=== PATIENT | male | born 1945 | race African-American/Black ===

== ENCOUNTER 2017-06-12 16:37 | Emergency (ER) | payer OTHER ==
[~2017-06-12] VITALS: Ht 182.9 cm; Wt 114.8 kg
--- NOTE | ~2017-06-12 | EKG ---
[address] [address] ELECTROCARDIOGRAM REPORT Name: TIMVÍCTOR JR [id number] Admission: 06/12/17 Attend Phys: Discharge: 06/12/17 Date of : 47 Report #: [id number] THIS REPORT FOR: //name// [facility] ED Test Date: 2017-06-13 Test Time: 18:04:22 Pat Name: VÍCTOR DUMONT Department: Room: Gender: M [employer] Person: IRVING : 1945 Requested By: Melissa Burger Order Number: [id number] MD: Measurements Intervals [place] Rate: 74 P: -4 NV: 200 QRS: -71 QRSD: 146 T: 110 QT: 448 QTc: 497 Interpretive Statements Sinus rhythm Ventricular premature complex IVCD, consider atypical RBBB Anterolateral infarct, age indeterminate Abnormal T, consider ischemia, lateral leads Compared to ECG 10/19/2016 12:46:41 Ventricular premature complex(es) now present Myocardial infarct finding now present T-wave abnormality now present Possible ischemia now present Left anterior fascicular block no longer present [email or web address] By: 03 03 Epiphany Epiphany, /ENA
[~2017-06-12 16:37] MED LIST: ASPIR-TRIN325 MG PO; ATORVASTATIN CA80 MG PO; BUMETANIDE 1 MG1 M1 GT; BUMETANIDE 1 MG1 M1 PO; COREG3.125 MG; DOXYCYCLINE 10100 MG PO; FLONASE 0.05%50 MCG NASAL; HYDROCHLOROTH12.5 M1 PO; IMBRUVICA140 MG PO; KEFLEX500 MG PO; LASIX 20 MG TAB20 MG PO; LIPITOR80 MG PO; LISINOPRIL40 MG PO; PREDNISONE 10 M10 MG PO; PREDNISONE 20 M20 MG PO; TESSALON PERLE100 MG PO; VENTOLIN HFA 1818 GM INH; [UNRECOGNIZED DRUG - CODE] PO
[2017-06-12 17:25] LABS: HEMOGLOBIN 12.5 gm/dL (14.0-18.0); MCHC 32.6 g/dL (28.0-37.0); MCV 98.1 fL (80.0-100.0)
[2017-06-12 17:28] LABS: HEMATOCRIT 38.3 % (42.0-52.0); PLATELET COUNT 82 thou/uL (150-400); RDW 15.8 % (10.5-14.5)
[2017-06-12 17:29] LABS: MANUAL DIFF YES
[2017-06-12 17:32] LABS: WBC 74.5 thou/uL (4.0-11.0)
[2017-06-12 17:36] LABS: CALCIUM 8.9 mg/dL (8.5-10.1); CREATININE 2.3 mg/dL (0.7-1.3)
[2017-06-12 17:39] LABS: INR 2.1; PROTIME 20.6 Seconds (9.3-11.4)
[2017-06-12 17:39] LABS: ABG SAMPLE TYPE ARTERIAL; HCO3 27.2 mmol/L (22.0-26.0); LACTATE 0.91 mmol/L (0.5-2.0); O2(CT) 16.2 mL/dL (15.0-23.0); O2Hb 91.4 % (92.0-98.0); PCO2 44.9 mmHg (35.0-45.0); PO2 67.8 mmHg (80.0-100.0); sO2 93.5 % (92.0-98.0); tCO2 28.6 mmol/L (24.0-30.0)
[2017-06-12 17:45] LABS: ALBUMIN 3.7 g/dL (3.4-5.0); TOTAL BILIRUBIN 1.3 mg/dL (<0.1-1.0); TOTAL PROTEIN 6.1 g/dL (6.4-8.2); TROPONIN-I 0.05 ng/mL (<0.04-0.07)
[2017-06-12 17:48] LABS: STICK SITE L.RADIAL
[2017-06-12 18:19] LABS: ABSOLUTE NEUTROPHILS 5.2 thou/uL (1.4-8.2); POLYCHROMASIA 1+; TOTAL CELL COUNT 100
[2017-06-12] MEDS ORDERED: LEVAQUIN 500 M500 M2 PO (19:32)
[2017-06-12] MEDS ORDERED: PREDNISONE 20 M20 MG PO (19:33)
[2017-06-12] MEDS ORDERED: VENTOLIN HFA 1818 GM INH (19:33)
== END 2017-06-12 20:07 | disposition left against medical advice (07) ==
LOC: ER 16:37
PROVIDERS: Nurse Practitioner Family
DX: J18.8 Other pneumonia, unspecified organism (principal); R09.02 Hypoxemia; D89.9 Disorder involving the immune mechanism, unspecified; I25.2 Old myocardial infarction; I10 Essential (primary) hypertension; Z87.01 Personal history of pneumonia (recurrent)

== ENCOUNTER 2017-06-13 17:12 | Inpatient (IN) | payer OTHER ==
[~2017-06-13] VITALS: Ht 152.4 cm; Wt 114.8 kg
--- NOTE | ~2017-06-13 | HC ---
[place] [address] CONSULTATION Name: VÍCTOR DUMONT Room #: 432-P ADM IN M.R.#: [id number] Admission: 06/13/17 Attend Phys: Ramon Andre MD Discharge: Date of : 47 Report #: [id number] THIS REPORT FOR: //name// CC: [facility] physician/PCP Ramon Turner Quick DATE OF SERVICE: 06/13/2017 REASON FOR CONSULTATION: Pneumonia. IMPRESSION: 1. Pneumonia and immunocompromised host. Etiology is especially since he was in the hospital, I believe less than a month ago. Chest x-ray today is improved, will not change antibiotics at present. 2. Leukemia. 3. History of myocardial infarction. 4. History of LV thrombus. 5. Chronic kidney disease. 6. Hyperkalemia. 7. Elevated BNP. 8. Anticoagulated. 9. Leukocytosis. 10. Anemia, macrocytic. 11. Thrombocytopenia, chronic. 12. Hypoxemia. PLAN: IV antibiotics, IV corticosteroids, aerosol therapy, hematology and ID to see. We will get echo tomorrow to evaluate the LV thrombus. HISTORY OF PRESENT ILLNESS: A 71-year-old male relates he started feeling ill about a week and a half ago when they were locked up in a meeting with someone who had cold. Since that time he has progressed to some worse was in Emergency Room yesterday, did not wish to stay as had something important to do, came back again and ready to be admitted. Positive cough, yellowish sputum. Positive fever, shortness of breath. No definite chest pain. PAST MEDICAL HISTORY: ALLERGIES: No known. PAST SURGICAL HISTORY: None. FAMILY HISTORY: [place], anemia, and emphysema. SOCIAL HISTORY: Negative tobacco, ETOH. No drugs of abuse. [address] [place] [address] CONSULTATION Name: VÍCTOR DUMONT Room #: 432-P [facility] IN [facility]#: [id number] Admission: 06/13/17 Attend Phys: Ramon Andre MD Discharge: Date of : 47 Report #: [id number] REVIEW OF SYSTEMS: As above. PHYSICAL EXAMINATION: VITAL SIGNS: Temperature 36.4, pulse 74, respirations 17, and blood pressure 117/61. EYES: Negative icterus. NECK: Trachea midline. No thrush. LUNGS: Coarse with wheeze. HEART: Regular. ABDOMEN: Bowel sounds present. EXTREMITIES: Showed trace edema. He feels the edema is secondary to corticosteroids. He has been on this in the past. LABORATORY DATA: Chest x-ray showed infiltrate. BNP elevated 5572. BUN 42, creatinine 2.2 and potassium 5.3. Total protein 6.3. INR 2.4, white count 126. Hemoglobin 12, platelets 97. Chest x-ray showed improvement. Troponin today, less than 0.04. Blood cultures from yesterday so far no growth. By: 09 27 Edson Blair MD /pino
--- NOTE | ~2017-06-13 | S ---
[facility] [place] [address] SURGICAL PATH RPT PROCEDURE Name: VÍCTOR DUMONT Room #: 432-P [facility] IN M.R.#: [id number] Admission: 06/13/17 Date of : 47 Discharge: 06/15/17 Report #: [id number] Path Case #: [id number] PATHOLOGY REPORT COLLECTION DATE: 06/13/2017 RECEIVED DATE: 06/15/2017 SUBMITTING PHYS: Dr. Ramon Andre OTHER PHYS: Melissa Tubbs SPECIMEN(S) RECEIVED: A.Peripheral smear * * * * * * * * * * * * FINAL DIAGNOSIS: Peripheral blood smear: - Marked leukocytosis / absolute mature lymphocytosis, mild macrocytic anemia and mild to moderate thrombocytopenia (see comment). (CLW:eric; 06/15/2017) COMMENT: Overall, the peripheral blood has a marked leukocytosis / absolute mature lymphocytosis, mild macrocytic anemia and mild to moderate thrombocytopenia. The etiology of the findings is unclear based entirely on slide review. It is consistent with the patient's reported history of chronic lymphocytic leukemia / small lymphocytic lymphoma (diagnosed elsewhere). Other causes of macrocytic anemia include vitamin B12 and/or folate deficiency, drug, liver and/or thyroid disease, and primary bone marrow disorders. Other causes of thrombocytopenia include immune and non-immune platelet destruction, drug and/or toxic exposures, blood loss, dilutional and primary bone marrow disorders. Correlation with clinical history and additional laboratory data is recommended. (CLW:eric; 06/15/2017) PATHOLOGIST: Lashonda Cheek M.D. REPORT ELECTRONICALLY SIGNED BY: Lashonda Cheek M.D. DATE/TIME: 06/15/2017 15:53 * * * * * * * * * * * * MICROSCOPIC DESCRIPTION: CBC Data (06/13/17): WBC 126,200 /uL, RBC 3.85, hemoglobin 12.0 g/dL, hematocrit 38.6%, MCV 100.2 fL, MCH 31.1 pg, MCHC 31.1 g/dL, RDW 15.9%. Platelet count 97,000 /uL. Manual white blood cell differential: segs 4%, lymphs 91%, and monos 5%. Peripheral Blood Smear: [address] [address] SURGICAL PATH RPT PROCEDURE Name: VÍCTOR DUMONT Room #: 432-P [facility] IN [facility]#: [id number] Admission: 06/13/17 Date of : 47 Discharge: 06/15/17 Report #: [id number] Path Case #: [id number] Cytomorphological examination of the Isidro's stained peripheral blood smear confirms the provided data. Red blood cells show mild macrocytic anemia with mild anisocytosis. No significant poikilocytosis is identified. No schistocytes or microspherocytes are seen. White blood cells are markedly increased in number. They are predominantly lymphocytes that are small, round, and mature appearing with condensed chromatin and scant cytoplasm. Smudge cells are seen. No significant large lymphoid (prolymphocyte) component is identified. Rare neutrophils are without significant dyspoiesis or significant left shift. Rare monocytes are mature. Platelets are mild to moderately decreased in number and mainly normal in morphology with rare larger platelets noted. (CLW:eric; 06/15/2017) CLINICAL HISTORY: 71-year-old man with leukocytosis / absolute mature lymphocytosis. Morphologic review of the peripheral blood smear is requested by the patient's physician. INITIAL CPT CODE(S): A; [place] Professional services performed by [email or web address] at [facility] [address], [place] [address] Technical services performed by [email or web address] at [address] [place] [address], [address], [place] [address]. [facility] [address] [place] [address] PHONE: [phone] DIRECTOR: Davian Antony M.D. * * * END OF REPORT * * *
--- NOTE | ~2017-06-13 | HC ---
[facility] [place] [address] CONSULTATION Name: VÍCTOR DUMONT Room #: 432-P ADM IN M.R.#: [id number] Admission: 06/13/17 Attend Phys: Ramon Andre MD Discharge: Date of : 47 Report #: [id number] THIS REPORT FOR: //name// CC: [facility] physician/PCP Ramon Turner Quick REASON FOR CONSULTATION: I was asked to evaluate the patient concerning pneumonia in the setting of CLL. HISTORY OF PRESENT ILLNESS: The patient was a 71-year-old with several-year history of CLL, treated with oral agents including prednisone up until last year, then on a ibrutinib up until the past month. He has also been on prednisone 10 mg every other day. He states, however, that the prednisone has been discontinued previous to this, a bit inconsistency with the record and his history. Over the last several days, he has had increased cough, congestion, shortness of breath, no pleuritic chest pain. No fever, chills or sweats. 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 No hemoptysis. No pleuritic chest pain. He presented to the Emergency Room, was diagnosed with bilateral infiltrates. He was recommended admission, but the patient refused. He did receive azithromycin, ceftriaxone, Solu-Medrol and dismissed on prednisone and Levaquin. He returned today with similar symptoms. He has had pneumonia one time last year. He reports no other pulmonary issues. He does not use oxygen on a regular basis. PAST MEDICAL HISTORY: [place] in 1996, hypertension, CLL diagnosed in 2015, pneumonia. REVIEW OF SYSTEMS: No skin lesions, rashes, arthritis, nausea, vomiting, diarrhea, dysuria or frequency. ALLERGIES: None known. CURRENT MEDICATIONS: As noted on his MAR including vancomycin and Levaquin. FAMILY HISTORY: Noncontributory. SOCIAL HISTORY: Nonsmoker, no significant alcohol intake. 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 No HIV risks. PHYSICAL EXAMINATION: VITAL SIGNS: Afebrile and hemodynamically stable. On 2 liters of oxygen per nasal cannula. GENERAL: He was alert and cooperative. He was short of breath with activity. He had intermittent cough, which was nonproductive. He had sinus congestion. HEENT: Otherwise, unremarkable. NECK: Supple. [facility] [address] [place] [address] CONSULTATION Name: VÍCTOR DUMONT Room #: [address] [place] [address] [place] [facility]#: [id number] Admission: 06/13/17 Attend Phys: Ramon Andre MD Discharge: Date of : 47 Report #: [id number] SKIN: Unremarkable. LYMPH: Unremarkable. LUNGS: Coarse breath sounds, right base greater than left. No consolidation. HEART: Regular, without murmur. ABDOMEN: Soft, obese, and nontender. No hepatosplenomegaly or mass. EXTREMITIES: Unremarkable. LABORATORY STUDIES: Hemoglobin 12, WBC 126,000, 91% lymphs, platelet count 97,000. Sodium 139, potassium 5.3, bicarbonate 26, creatinine 2.2. Liver function test normal. BNP 5572. Oxygen 2 liters with an ABG 62, pCO2 35, pH 7.4. Blood cultures are negative to date. Urine antigens for legionella and strep pneumo negative. Chest x-ray, right middle and lower lobe infiltrate, left lower lobe infiltrate. Repeat x-ray today showed some improvement. IMPRESSION AND PLAN: A 71-year-old with chronic lymphocytic leukemia, coronary artery disease, bilateral pulmonary infiltrates, hypoxia, acute renal failure, hyperkalemia. Considering community-acquired organisms still most likely in etiology. Recommend CT scan of the sinuses and chest. IgG level. Check viral respiratory panel, sputum culture. We will continue broad antibiotic coverage and full support. <ELECTRONICALLY SIGNED> By: Abhishek Paulson MD 06/14/17 1308 37 Abhishek Paulson MD /nt
[~2017-06-13 17:12] MED LIST changes: +LEVAQUIN 500 M500 M2 PO
[2017-06-13 17:18] VITALS: BP 135/81
[2017-06-13 18:02] LABS: ABG SAMPLE TYPE ARTERIAL; BE(vivo) -1.6 mmol/L (-2 to +3); HCO3 22.4 mmol/L (22.0-26.0); LACTATE 1.43 mmol/L (0.5-2.0); O2(CT) 16.3 mL/dL (15.0-23.0); O2Hb 90.4 % (92.0-98.0); PCO2 35.8 mmHg (35.0-45.0); pH 7.415 (7.360-7.450); sO2 92.3 % (92.0-98.0); tCO2 23.5 mmol/L (24.0-30.0)
[2017-06-13 18:03] LABS: ABG COMMENT NO COMPLICATIONS; STICK SITE L.RADIAL
[2017-06-13 18:21] VITALS: BP 135/81
[2017-06-13 18:40] LABS: RDW 15.9 % (10.5-14.5)
[2017-06-13 18:43] LABS: HEMATOCRIT 38.6 % (42.0-52.0); MCH 31.1 pg (26.0-34.0); MCHC 31.1 g/dL (28.0-37.0); MCV 100.2 fL (80.0-100.0); PLATELET COUNT 97 thou/uL (150-400); RBC 3.85 mil/uL (4.50-6.00)
[2017-06-13 18:47] LABS: ANION GAP 7 mmol/L (7-16); BUN 42 mg/dL (7-18); CALCIUM 8.7 mg/dL (8.5-10.1); CHLORIDE 106 mmol/L (98-107); CO2 26 mmol/L (21-32); CREATININE 2.2 mg/dL (0.7-1.3); GLUCOSE 155 mg/dL (74-106); POTASSIUM 5.3 mmol/L (3.5-5.1); SODIUM 139 mmol/L (136-145)
[2017-06-13 18:49] LABS: MANUAL DIFF YES
[2017-06-13 18:51] LABS: WBC 126.2 thou/uL (4.0-11.0)
[2017-06-13 18:53] LABS: INR 2.4; PROTIME 24.7 Seconds (9.3-11.4)
[2017-06-13 18:55] LABS: ALBUMIN 3.7 g/dL (3.4-5.0); ALKALINE PHOSPHATASE 84 U/L (46-116); SGOT 35 U/L (15-37); SGPT 21 U/L (30-65); TOTAL PROTEIN 6.3 g/dL (6.4-8.2); TROPONIN-I < 0.04 ng/mL (<0.04-0.07)
[2017-06-13 18:56] VITALS: BP 117/61
[2017-06-13 19:22] VITALS: BP 125/78
[2017-06-13 19:24] LABS: TOTAL CELL COUNT 100
[2017-06-14 03:49] VITALS: BP 125/77
[2017-06-14 05:21] LABS: HEMOGLOBIN 11.4 gm/dL (14.0-18.0); MCH 31.4 pg (26.0-34.0); RBC 3.64 mil/uL (4.50-6.00)
[2017-06-14 05:25] LABS: HEMATOCRIT 36.4 % (42.0-52.0); MCHC 31.4 g/dL (28.0-37.0); MCV 100.1 fL (80.0-100.0); PLATELET COUNT 85 thou/uL (150-400); RDW 15.8 % (10.5-14.5)
[2017-06-14 05:29] LABS: CALCIUM 8.6 mg/dL (8.5-10.1)
[2017-06-14 05:33] LABS: MANUAL DIFF YES
[2017-06-14 05:45] LABS: POTASSIUM 6.2 mmol/L (3.5-5.1)
[2017-06-14 05:56] LABS: WBC 126.6 thou/uL (4.0-11.0)
[2017-06-14 06:39] LABS: ABSOLUTE NEUTROPHILS 5.1 thou/uL (1.4-8.2); ATYPICAL LYMPHS 2 %; PLATELET ESTIMATE DECREASED; TOTAL CELL COUNT 100
[2017-06-14 06:52] LABS: HEMATOCRIT 39.4 % (42.0-52.0); MCH 30.8 pg (26.0-34.0); MCHC 30.6 g/dL (28.0-37.0); MCV 100.6 fL (80.0-100.0); PLATELET COUNT 89 thou/uL (150-400); RBC 3.91 mil/uL (4.50-6.00); RDW 16.1 % (10.5-14.5)
[2017-06-14 06:55] LABS: CALCIUM 8.8 mg/dL (8.5-10.1); POTASSIUM 5.3 mmol/L (3.5-5.1)
[2017-06-14 06:58] LABS: MANUAL DIFF YES
[2017-06-14 07:01] LABS: WBC 137.7 thou/uL (4.0-11.0)
[2017-06-14 07:24] LABS: ABSOLUTE NEUTROPHILS 6.9 thou/uL (1.4-8.2); ATYPICAL LYMPHS 2 %; PLATELET ESTIMATE DECREASED; TOTAL CELL COUNT 100
[2017-06-14 10:05] VITALS: BP 129/80
[2017-06-14 16:33] VITALS: BP 130/82
[2017-06-14 21:30] VITALS: BP 120/85
[2017-06-15 04:30] VITALS: BP 131/83
[2017-06-15 07:41] LABS: HEMATOCRIT 37.4 % (42.0-52.0); HEMOGLOBIN 11.5 gm/dL (14.0-18.0); MCH 31.1 pg (26.0-34.0); MCHC 30.7 g/dL (28.0-37.0); MCV 101.5 fL (80.0-100.0); RBC 3.68 mil/uL (4.50-6.00); RDW 16.2 % (10.5-14.5)
[2017-06-15 07:46] LABS: CALCIUM 8.6 mg/dL (8.5-10.1); CREATININE 1.9 mg/dL (0.7-1.3); POTASSIUM 5.5 mmol/L (3.5-5.1)
[2017-06-15 08:19] LABS: MANUAL DIFF YES
[2017-06-15 08:20] VITALS: BP 130/92
[2017-06-15 08:44] LABS: WBC 126.5 thou/uL (4.0-11.0)
[2017-06-15 09:21] LABS: ABSOLUTE NEUTROPHILS 6.3 thou/uL (1.4-8.2); ATYPICAL LYMPHS 4 %; TOTAL CELL COUNT 100
[2017-06-15 09:22] LABS: ANISOCYTOSIS 1+; PLATELET COUNT 86 thou/uL (150-400); POIKILOCYTOSIS SLIGHT
[2017-06-15 09:23] LABS: PLATELET ESTIMATE SLIGHTLY DECREASED
[2017-06-15 11:31] VITALS: BP 130/92
[2017-06-17 03:12] LABS: INFLUENZA B Negative (Negative); METAPNEUMOVIRUS Negative (Negative)
[2017-06-17 13:10] LABS: HIV ANTIBODY Non Reactive (Non Reactive)
== END 2017-06-15 12:15 | disposition home or self-care (01) | DRG 177 ==
LOC: ER 17:12 → EROBS 18:23 → 4E 18:23 → ENTRNSPT 06-15 12:03 → EDTRNSPTSTS 06-15 12:12 → 4E 06-15 12:15
PROVIDERS: Family Medicine; Nurse Practitioner Acute Care; Nurse Practitioner Family; Specialist
DX: J69.0 Pneumonitis due to inhalation of food and vomit (principal); N17.0 Acute kidney failure with tubular necrosis; C91.10 Chronic lymphocytic leukemia of B-cell type not having achieved remission; D80.1 Nonfamilial hypogammaglobulinemia; Z68.42 Body mass index [BMI] 45.0-49.9, adult; D69.6 Thrombocytopenia, unspecified; I12.9 Hypertensive chronic kidney disease with stage 1 through stage 4 chronic kidney disease, or unspecified chronic kidney disease; N18.9 Chronic kidney disease, unspecified; R09.02 Hypoxemia; D89.9 Disorder involving the immune mechanism, unspecified; E87.5 Hyperkalemia; D53.9 Nutritional anemia, unspecified; I25.10 Atherosclerotic heart disease of native coronary artery without angina pectoris; E66.3 Overweight; Z79.2 Long term (current) use of antibiotics; I25.2 Old myocardial infarction; Z79.51 Long term (current) use of inhaled steroids; Z79.01 Long term (current) use of anticoagulants; Z79.899 Other long term (current) drug therapy
CPT/HCPCS: 10183